=== PATIENT | female | born 1965 | race Caucasian/White ===

== ENCOUNTER 2018-10-02 08:50 | Emergency (ER) | payer OTHER ==
[~2018-10-02] VITALS: Ht 172.7 cm; Wt 90.7 kg
[2018-10-02] MEDS ORDERED: Prednisone20 MG PO (09:22)
== END 2018-10-02 09:38 | disposition home or self-care (01) ==
LOC: ER 08:50
DX: M54.42 Lumbago with sciatica, left side (principal)
CPT/HCPCS: 96372; 99283-25; J1885; J7512

== ENCOUNTER 2018-10-06 11:33 | Emergency (ER) | payer OTHER ==
[~2018-10-06] VITALS: Ht 157.5 cm; Wt 90.7 kg
[~2018-10-06 11:33] MED LIST: Prednisone20 MG PO
[2018-10-06] MEDS ORDERED: PSEU120ER PO (11:57)
[2018-10-06] MEDS ORDERED: Augmentin 875-1 EACH PO (11:57)
[2018-10-06] MEDS ORDERED: IBUP800 PO (11:57)
== END 2018-10-06 12:06 | disposition home or self-care (01) ==
LOC: ER 11:33
DX: J32.9 Chronic sinusitis, unspecified (principal); H92.02 Otalgia, left ear
CPT/HCPCS: 96372; 99282-25; J1885